=== PATIENT | male | born 1955 | race Caucasian/White ===

== ENCOUNTER 2017-02-13 10:29 | Emergency (ER) | payer OTHER ==
[~2017-02-13] VITALS: Ht 177.8 cm; Wt 105.0 kg
[~2017-02-13 10:29] MED LIST: CEPH-507 PO; GABA-531 PO; SULF-221 PO
[2017-02-13] MEDS ORDERED: LEVO25TA5 PO (10:45)
[2017-02-13] MEDS: BACITRACIN OINTMENT 0.9 GM PACKET TOP ONE (11:39)
[2017-02-13] MEDS: LIDOCAINE 1% (XYLOCAINE) 20 ML VIAL INJ ONE (11:39)
[2017-02-13 11:49] VITALS: BP 174/72
== END 2017-02-13 11:52 | disposition home or self-care (01) ==
LOC: ED 10:32
DX: S41.112A Laceration without foreign body of left upper arm, initial encounter (principal); W26.8XXA Contact with other sharp object(s), not elsewhere classified, initial encounter; Y93.H3 Activity, building and construction; Y92.008 Other place in unspecified non-institutional (private) residence as the place of occurrence of the external cause
CPT/HCPCS: 12002; 12032; 99283